=== PATIENT | female | born 1935 | race Caucasian/White ===

== ENCOUNTER 2019-06-09 21:23 | Observation (INO) ==
[2019-06-09 21:57] LABS: Hematocrit 41.6 % (35.3-44.9); Mean Corpuscular HGB Conc 33.7 g/dL (31.6-35.5); Mean Corpuscular Volume 98.1 fL (83.0-100.0); Mean Platelet Volume 10.1 fL (9.4-12.4); Platelet Count 216 K/mcL (140-400); Red Blood Count 4.24 M/mcL (3.82-4.97); Red Cell Distribution Width 13.2 % (11.5-14.5); White Blood Count 7.9 K/mcL (4.3-11.1)
[2019-06-09 22:01] LABS: Prothrombin Time 10.9 Seconds (9.4-12.1)
[2019-06-09 22:03] LABS: Bilirubin,Urine Negative (Negative); Blood,Urine Negative (Negative); Clarity,Urine Clear (Clear); Color,Urine Yellow (Yellow); Glucose,Urine (UA) Normal (Normal); Ketones,Urine Negative (Negative); Leukocyte Esterase,Urine Negative (Negative); Nitrite,Urine Negative (Negative); Protein,Urine 30 mg/dL (Neg-Trace); Urobilinogen,Urine Normal (Normal)
[2019-06-09 22:04] LABS: Activated Partial Thrombo Time 33.7 Seconds (26.0-36.0)
[2019-06-09 22:06] LABS: Bacteria,Urine None Seen per hpf (None-Few); Hyaline Casts,Urine None Seen per lpf (None-Few); RBC,Urine 0-3 per hpf (0-3); Squamous Epithelial Cell,Urine Many per lpf (None-Few); WBC,Urine 0-3 per hpf (0-3)
[2019-06-09 22:19] LABS: BUN/Creatinine Ratio 21 (6-26); Blood Urea Nitrogen 18 mg/dL (8-23); Calcium 9.7 mg/dL (8.6-10.3); Carbon Dioxide 28 mEq/L (23-29); Chloride 98 mEq/L (98-107); Glucose 110 mg/dL (70-105); Osmolality,Calculated 281 (280-300); Potassium 3.9 mEq/L (3.5-5.1); Sodium 134 mEq/L (136-145); eGFR For African Americans > 60 (> 60); eGFR For Non-African Americans > 60 (> 60)
[2019-06-09 22:20] LABS: Troponin I < 0.03 ng/mL (< 0.04)
[2019-06-10] MEDS ORDERED: Naloxone 0.4 MG/ML INJ IVP PRN (02:44)
[2019-06-10] MEDS: Acetaminophen 325 MG TABLET PO PRN (05:37)
[2019-06-10 05:48] LABS: Hematocrit 39.5 % (35.3-44.9); Hemoglobin 13.6 g/dL (11.5-15.4); Mean Corpuscular HGB Conc 34.4 g/dL (31.6-35.5); Mean Corpuscular Hemoglobin 32.7 pg (28.0-33.3); Mean Platelet Volume 10.4 fL (9.4-12.4); Platelet Count 226 K/mcL (140-400); Red Blood Count 4.16 M/mcL (3.82-4.97); Red Cell Distribution Width 13.2 % (11.5-14.5); White Blood Count 8.1 K/mcL (4.3-11.1)
[2019-06-10 06:06] LABS: Alanine Aminotransferase 10 Units/L (7-52); Albumin 4.1 g/dL (3.5-5.7); Albumin/Globulin Ratio 1.4 (1.1-2.2); Alkaline Phosphatase 64 Units/L (34-104); Aspartate Amino Transferase 15 Units/L (13-39); BUN/Creatinine Ratio 22 (6-26); Bilirubin,Total 0.4 mg/dL (0.3-1.0); Blood Urea Nitrogen 16 mg/dL (8-23); Calcium 9.6 mg/dL (8.6-10.3); Carbon Dioxide 25 mEq/L (23-29); Chloride 100 mEq/L (98-107); Chol/HDL Ratio 4.4 (0-4.9); Cholesterol 230 mg/dL (< 200); Glucose 112 mg/dL (70-105); HDL Cholesterol 52 mg/dL (40-59); LDL Cholesterol,Calculated 157 mg/dL (0-99); Magnesium 1.7 mg/dL (1.6-2.6); Osmolality,Calculated 286 (280-300); Phosphorous 3.6 mg/dL (2.7-4.5); Potassium 3.9 mEq/L (3.5-5.1); Sodium 137 mEq/L (136-145); Total Protein 7.1 g/dL (6.4-8.9); Triglycerides 107 mg/dL (< 150); eGFR For African Americans > 60 (> 60); eGFR For Non-African Americans > 60 (> 60)
[2019-06-10] MEDS: Aspirin 81 MG TAB.CHEW PO SCH (09:49)
[2019-06-10 10:52] LABS: Estimated Average Glucose 123 mg/dl
[2019-06-10] MEDS ORDERED: *HR* HYDROcodone/Acet 5/325 mg TABLET PO PRN (13:02)
[2019-06-10] MEDS: Gabapentin 100 MG CAPSULE PO SCH (20:01)
[2019-06-11] MEDS: Acetaminophen 325 MG TABLET PO PRN (02:57)
[2019-06-11 07:32] VITALS: BP 149/74
[2019-06-11] MEDS: Aspirin 81 MG TAB.CHEW PO SCH (08:26)
[2019-06-11] MEDS: Gabapentin 100 MG CAPSULE PO SCH (08:27)
== END 2019-06-11 12:44 | disposition home or self-care (01) ==
LOC: EMEROOARM 21:23 → 3BNU 21:23
PROVIDERS: ADMIT Internal Medicine; ATTEND Internal Medicine

== ENCOUNTER 2020-06-14 11:40 | Inpatient (IN) ==
[2020-06-14] MEDS ORDERED: Aspirin 81 MG TAB.CHEW PO ONE (12:03)
[2020-06-14] MEDS ORDERED: *HR* Labetalol 20 MG/4 ML SYRINGE IVP STA (12:04)
[2020-06-14 12:10] LABS: Basophils # 0.1 K/mcL (0.0-0.2); Basophils % 0.7 %; Eosinophils # 0.2 K/mcL (0.0-0.6); Eosinophils % 3.1 %; Hematocrit 42.1 % (35.3-44.9); Hemoglobin 13.7 g/dL (11.5-15.4); Immature Granulocytes % 0.3 % (0-4); Lymphocytes # 2.2 K/mcL (0.6-4.6); Lymphocytes % 29.3 %; Mean Corpuscular HGB Conc 32.5 g/dL (31.6-35.5); Mean Corpuscular Hemoglobin 31.5 pg (28.0-33.3); Mean Corpuscular Volume 96.8 fL (83.0-100.0); Mean Platelet Volume 10.2 fL (9.4-12.4); Monocytes # 0.4 K/mcL (0.0-1.3); Monocytes % 5.9 %; Neutrophils # 4.5 K/mcL (1.6-8.9); Platelet Count 229 K/mcL (140-400); Red Blood Count 4.35 M/mcL (3.82-4.97); Red Cell Distribution Width 13.6 % (11.5-14.5); Segmented Neutrophils % 60.7 %; White Blood Count 7.3 K/mcL (4.3-11.1)
[2020-06-14 12:30] LABS: BUN/Creatinine Ratio 15 (6-26); Blood Urea Nitrogen 14 mg/dL (8-23); Calcium 9.9 mg/dL (8.6-10.3); Carbon Dioxide 25 mEq/L (23-29); Chloride 100 mEq/L (98-107); Glucose 100 mg/dL (70-105); Osmolality,Calculated 281 (280-300); Potassium 4.1 mEq/L (3.5-5.1); Sodium 135 mEq/L (136-145); eGFR For African Americans > 60 (> 60); eGFR For Non-African Americans 59 (> 60)
[2020-06-14 12:32] LABS: Troponin I 0.32 ng/mL (< 0.04)
[2020-06-14] MEDS ORDERED: *HR* Heparin 5,000 UNIT/ML VIAL IVP ONE (13:14)
[2020-06-14] MEDS ORDERED: *HR* Heparin 5,000 UNIT/ML VIAL IVP PRN ×2 (13:14)
[2020-06-14] MEDS ORDERED: Heparin 25,000UNIT/250ML 1/2NS 25,000 UNIT/250 ML IV.SOLN IVC SCH (13:15)
[2020-06-14] MEDS ORDERED: Nitroglycerin 0.4 MG TAB.SUBL SL ONE (13:30)
[2020-06-14] MEDS ORDERED: methylPREDNISolone 125 MG/2 ML VIAL IVP ONE (13:42)
[2020-06-14] MEDS ORDERED: Nitroglycerin 0.4 MG TAB.SUBL SL PRN (13:45)
[2020-06-14 14:11] LABS: Heparin anti-factor XA UFH < 0.04 IU/mL (0.30-0.70)
[2020-06-14 14:15] LABS: Hematocrit 40.6 % (35.3-44.9); Hemoglobin 12.9 g/dL (11.5-15.4); Mean Corpuscular HGB Conc 31.8 g/dL (31.6-35.5); Mean Corpuscular Hemoglobin 30.4 pg (28.0-33.3); Mean Corpuscular Volume 95.5 fL (83.0-100.0); Mean Platelet Volume 10.3 fL (9.4-12.4); Platelet Count 246 K/mcL (140-400); Red Blood Count 4.25 M/mcL (3.82-4.97); Red Cell Distribution Width 13.6 % (11.5-14.5); White Blood Count 7.1 K/mcL (4.3-11.1)
[2020-06-14] MEDS ORDERED: Ondansetron 4 MG/2 ML VIAL IVP ONE (14:17)
[2020-06-14] MEDS ORDERED: *HR* Heparin 10,000 UNIT/10 ML VIAL ONE (14:25)
[2020-06-14] MEDS ORDERED: 0.9 % Sodium Chloride 1,000 ML ONE ×2 (14:25→14:28)
[2020-06-14] MEDS ORDERED: Heparin 1,000 UNITS/500 mL 500 ML ONE (14:25)
[2020-06-14] MEDS ORDERED: ISOVUE-370 200 ML INFUS..BTL ONE ×2 (14:25→15:14)
[2020-06-14] MEDS ORDERED: Nitroglycerin 1,000 MCG/10 ML VIAL IV ONE (14:25)
[2020-06-14] MEDS ORDERED: *HR* Metoprolol 5 MG/5 ML VIAL IVP ONE ×2 (14:34→14:35)
[2020-06-14] MEDS ORDERED: *HR* FentaNYL (PF) 100 MCG/2 ML VIAL ONE (14:40)
[2020-06-14] MEDS ORDERED: *HR* Midazolam HCl 2 MG/2 ML VIAL ONE (14:40)
[2020-06-14] MEDS ORDERED: Acetaminophen 325 MG TABLET PO PRN (14:45)
[2020-06-14] MEDS ORDERED: Naloxone 0.4 MG/ML INJ IVP PRN (14:45)
[2020-06-14] MEDS ORDERED: Ondansetron 4 MG/2 ML VIAL IVP PRN (14:45)
[2020-06-14] MEDS ORDERED: Tirofiban 12.5 MG/250ML 12.5 MG/250 ML BAG ONE (15:09)
[2020-06-14] MEDS ORDERED: *HR* Atropine Sulfate 1 MG/10 ML SYRINGE ONE (15:14)
[2020-06-14] MEDS ORDERED: Tirofiban 12.5 MG/250ML 12.5 MG/250 ML BAG IVC SCH (16:15)
[2020-06-14] MEDS ORDERED: Melatonin 3 MG TABLET PO PRN (20:57)
[2020-06-15 04:53] LABS: Hematocrit 38.6 % (35.3-44.9); Hemoglobin 12.6 g/dL (11.5-15.4); Mean Corpuscular HGB Conc 32.6 g/dL (31.6-35.5); Mean Corpuscular Hemoglobin 31.3 pg (28.0-33.3); Mean Corpuscular Volume 95.8 fL (83.0-100.0); Mean Platelet Volume 10.7 fL (9.4-12.4); Platelet Count 292 K/mcL (140-400); Red Blood Count 4.03 M/mcL (3.82-4.97); Red Cell Distribution Width 13.7 % (11.5-14.5); White Blood Count 7.5 K/mcL (4.3-11.1)
[2020-06-15 05:23] LABS: Calcium 9.2 mg/dL (8.6-10.3); Chol/HDL Ratio 4.7 (0-4.9); Magnesium 2.1 mg/dL (1.6-2.6); Troponin I 4.97 ng/mL (< 0.04)
[2020-06-15 05:32] LABS: Thyroid Stimulating Hormone 1.232 mcIU/mL (0.340-5.600)
[2020-06-15] MEDS: Aspirin 81 MG TAB.CHEW PO SCH (07:35)
[2020-06-15] MEDS ORDERED: Perflutren Lipid Microsphere 1.3 ML in 0.9 % Sodium Chloride 8.7 ML IVP PRN (08:25)
[2020-06-15] MEDS ORDERED: Metoprolol XL (24 HR) Succ 25 MG TAB.ER.24H PO SCH (09:00)
[2020-06-15] MEDS ORDERED: Aspirin Enteric Coated 81 MG Tablet PO SCH (09:00)
[2020-06-15] MEDS: Lisinopril-HCTZ 20-12.5mg TABLET PO SCH (09:36)
[2020-06-15] MEDS: Isosorbide MONOnitrate (24 HR) 30 MG TAB.ER.24H PO SCH (14:38)
[2020-06-16 04:05] VITALS: BP 118/67
[2020-06-16] MEDS ORDERED: MOM Conc 10 ML UD.LIQ PO PRN (07:02)
[2020-06-16] MEDS: Lisinopril-HCTZ 20-12.5mg TABLET PO SCH (07:37)
[2020-06-16] MEDS: Isosorbide MONOnitrate (24 HR) 30 MG TAB.ER.24H PO SCH (07:37)
[2020-06-16] MEDS: Aspirin 81 MG TAB.CHEW PO SCH (07:37)
[2020-06-16] MEDS ORDERED: Metoprolol XL (24 HR) Succ 25 MG TAB.ER.24H PO SCH (09:00)
== END 2020-06-16 12:07 | disposition home or self-care (01) | DRG 247 ==
LOC: 2NNU 11:40 → EMEROOARM 11:40 → 2NNU 14:46 → SUATTDRO 15:10
PROVIDERS: ADMIT Student in an Organized Health Care Education/Training Program; ATTEND General Practice

== ENCOUNTER 2020-06-19 09:07 | Observation (INO) ==
[2020-06-19] MEDS ORDERED: Nitroglycerin 0.4 MG TAB.SUBL SL PRN ×2 (09:22→10:52)
[2020-06-19] MEDS ORDERED: Aspirin 81 MG TAB.CHEW PO SCH (09:30)
[2020-06-19 09:37] LABS: Hematocrit 37.5 % (35.3-44.9); Hemoglobin 12.1 g/dL (11.5-15.4); Mean Corpuscular Hemoglobin 31.1 pg (28.0-33.3); Mean Corpuscular Volume 96.4 fL (83.0-100.0); Red Blood Count 3.89 M/mcL (3.82-4.97); White Blood Count 8.8 K/mcL (4.3-11.1)
[2020-06-19 09:38] LABS: Basophils # 0.1 K/mcL (0.0-0.2); Basophils % 0.6 %; Eosinophils # 0.3 K/mcL (0.0-0.6); Eosinophils % 3.8 %; Immature Granulocytes % 0.3 % (0-4); Lymphocytes # 1.3 K/mcL (0.6-4.6); Lymphocytes % 14.7 %; Mean Corpuscular HGB Conc 32.3 g/dL (31.6-35.5); Mean Platelet Volume 10.3 fL (9.4-12.4); Monocytes # 0.6 K/mcL (0.0-1.3); Monocytes % 6.2 %; Neutrophils # 6.6 K/mcL (1.6-8.9); Platelet Count 264 K/mcL (140-400); Red Cell Distribution Width 13.8 % (11.5-14.5); Segmented Neutrophils % 74.4 %
[2020-06-19 10:01] LABS: BUN/Creatinine Ratio 20 (6-26); Blood Urea Nitrogen 17 mg/dL (8-23); Calcium 8.9 mg/dL (8.6-10.3); Carbon Dioxide 25 mEq/L (23-29); Chloride 100 mEq/L (98-107); Glucose 121 mg/dL (70-105); Osmolality,Calculated 281 (280-300); Potassium 3.8 mEq/L (3.5-5.1); Sodium 134 mEq/L (136-145); Troponin I 0.79 ng/mL (< 0.04); eGFR For African Americans > 60 (> 60); eGFR For Non-African Americans > 60 (> 60)
[2020-06-19] MEDS ORDERED: Ondansetron ODT 4 MG TAB.RAPDIS SL PRN (10:45)
[2020-06-19] MEDS ORDERED: Naloxone 0.4 MG/ML INJ IVP PRN (10:45)
[2020-06-19 11:31] LABS: Lipase 51 Units/L (11-82); Magnesium 2.3 mg/dL (1.6-2.6)
[2020-06-19] MEDS ORDERED: GI Cocktail 40 ML EACH PO ONE (11:44)
[2020-06-19] MEDS: *HR* Heparin 5,000 UNIT/ML VIAL SQ SCH ×2 (14:31→20:53)
[2020-06-19 16:04] LABS: Adenovirus Not Detected (Not Detect); Bordetella Pertussis Not Detected (Not Detect); Chlamydophila pneumoniae Not Detected (Not Detect); Coronavirus 229E Not Detected (Not Detect); Coronavirus HKU1 Not Detected (Not Detect); Coronavirus NL63 Not Detected (Not Detect); Coronavirus OC43 Not Detected (Not Detect); Human Metapneumovirus Not Detected (Not Detect); Human Rhinovirus/Enterovirus Not Detected (Not Detect); Influenza A Subtype 2009 H1 Not Detected (Not Detect); Influenza B Not Detected (Not Detect); Mycoplasma pneumoniae Not Detected (Not Detect); Parainfluenza Virus 1 Not Detected (Not Detect); Parainfluenza Virus 2 Not Detected (Not Detect); Parainfluenza Virus 3 Not Detected (Not Detect); Parainfluenza Virus 4 Not Detected (Not Detect); Respiratory Syncytial Virus Not Detected (Not Detect); SARS-CoV-2 Not Detected (Not Detect)
[2020-06-20 01:42] LABS: Hematocrit 35.2 % (35.3-44.9); Hemoglobin 11.3 g/dL (11.5-15.4); Mean Corpuscular HGB Conc 32.1 g/dL (31.6-35.5); Mean Corpuscular Hemoglobin 31.4 pg (28.0-33.3); Mean Corpuscular Volume 97.8 fL (83.0-100.0); Mean Platelet Volume 10.5 fL (9.4-12.4); Platelet Count 234 K/mcL (140-400); Red Cell Distribution Width 13.6 % (11.5-14.5); White Blood Count 7.2 K/mcL (4.3-11.1)
[2020-06-20 01:54] LABS: BUN/Creatinine Ratio 19 (6-26); Blood Urea Nitrogen 16 mg/dL (8-23); Calcium 8.8 mg/dL (8.6-10.3); Carbon Dioxide 26 mEq/L (23-29); Chloride 100 mEq/L (98-107); Glucose 108 mg/dL (70-105); Osmolality,Calculated 278 (280-300); Potassium 4.2 mEq/L (3.5-5.1); Sodium 133 mEq/L (136-145); eGFR For African Americans > 60 (> 60); eGFR For Non-African Americans > 60 (> 60)
[2020-06-20] MEDS: *HR* Heparin 5,000 UNIT/ML VIAL SQ SCH (04:58)
[2020-06-20 06:41] VITALS: BP 121/66
[2020-06-20] MEDS: Metoprolol XL (24 HR) Succ 25 MG TAB.ER.24H PO SCH ×2 (09:30→10:13)
[2020-06-20] MEDS: Lisinopril-HCTZ 20-12.5mg TABLET PO SCH ×2 (09:30→10:13)
[2020-06-20] MEDS: Aspirin 81 MG TAB.CHEW PO SCH ×2 (09:30→10:13)
[2020-06-20] MEDS: Isosorbide MONOnitrate (24 HR) 30 MG TAB.ER.24H PO SCH ×2 (09:31→10:13)
[2020-06-20] MEDS ORDERED: Pantoprazole 40 MG VIAL IVP SCH (09:35)
== END 2020-06-20 11:50 | disposition home or self-care (01) ==
LOC: 3BNU 09:07 → EMEROOARM 09:07 → 3BNU 11:00
PROVIDERS: ADMIT Student in an Organized Health Care Education/Training Program; ATTEND Student in an Organized Health Care Education/Training Program

== ENCOUNTER 2022-04-12 09:43 | Observation (INO) ==
[2022-04-12] MEDS ORDERED: 0.9 % Sodium Chloride 1,000 ML IVC ONE (10:20)
[2022-04-12 11:10] LABS: Albumin 4.1 g/dL (3.5-5.7); Albumin/Globulin Ratio 1.3 (1.1-2.2); Bilirubin,Total 1.1 mg/dL (0.3-1.0); Calcium 14.9 mg/dL (8.6-10.3); Globulin 3.1 g/dL (2.4-3.5); Magnesium 1.7 mg/dL (1.6-2.6); Potassium 2.6 mEq/L (3.5-5.1); Total Protein 7.2 g/dL (6.4-8.9); Troponin I 0.09 ng/mL (< 0.04)
[2022-04-12 11:26] LABS: Basophils % 0.3 %; Eosinophils # 0.1 K/mcL (0.0-0.6); Eosinophils % 0.8 %; Hematocrit 39.5 % (35.3-44.9); Hemoglobin 13.9 g/dL (11.5-15.4); Immature Granulocytes % 0.3 % (0-4); Lymphocytes # 0.5 K/mcL (0.6-4.6); Lymphocytes % 6.3 %; Mean Corpuscular HGB Conc 35.2 g/dL (31.6-35.5); Mean Corpuscular Hemoglobin 33.2 pg (28.0-33.3); Mean Corpuscular Volume 94.3 fL (83.0-100.0); Mean Platelet Volume 10.6 fL (9.4-12.4); Monocytes # 0.4 K/mcL (0.0-1.3); Monocytes % 5.3 %; Neutrophils # 6.2 K/mcL (1.6-8.9); Platelet Count 254 K/mcL (140-400); Red Blood Count 4.19 M/mcL (3.82-4.97); Red Cell Distribution Width 12.4 % (11.5-14.5); White Blood Count 7.1 K/mcL (4.3-11.1)
[2022-04-12 11:35] LABS: Prothrombin Time 11.6 Seconds (9.4-12.1)
[2022-04-12 11:37] LABS: Bilirubin,Urine Negative (Negative); Blood,Urine Negative (Negative); Clarity,Urine Clear (Clear); Color,Urine Light-Yellow (Yellow); Glucose,Urine (UA) Normal (Normal); Ketones,Urine 20 mg/dL (Negative); Leukocyte Esterase,Urine Negative (Negative); Nitrite,Urine Negative (Negative); PH,Urine 6.5 pH Units (5.0-8.0); Protein,Urine Trace mg/dL (Neg-Trace); Specific Gravity,Urine 1.012 (1.010-1.025); Urobilinogen,Urine Normal (Normal)
[2022-04-12 11:38] LABS: Activated Partial Thrombo Time 30.1 Seconds (26.0-36.0)
[2022-04-12 11:42] LABS: Thyroid Stimulating Hormone 2.536 mcIU/mL (0.340-5.600)
[2022-04-12] MEDS ORDERED: Morphine Sulfate 2 MG/ML SYRINGE IVP ONE (12:10)
[2022-04-12] MEDS ORDERED: Naloxone 0.4 MG/ML INJ IVP PRN (13:02)
[2022-04-12] MEDS: 0.9 % Sodium Chloride 1,000 ML IVC SCH (18:56)
[2022-04-12 22:41] VITALS: O2SAT 97
[2022-04-13] MEDS: 0.9 % Sodium Chloride 1,000 ML IVC SCH (05:46)
[2022-04-13 12:21] VITALS: BP 162/75; PULSE 92; TEMP 97.7
== END 2022-04-13 17:48 | disposition hospice, inpatient (51) ==
LOC: 2ANU 09:43 → EMEROOARM 09:43 → SUATTDRO 16:30 → 2ANU 17:53
PROVIDERS: ADMIT Internal Medicine; ATTEND Hospitalist